=== PATIENT | female | born 1990 ===

== ENCOUNTER → 2020-10-13 08:29 | Outpatient (BNVA) | payer OTHER, SELFPAY | PROVIDERS: PCP Internal Medicine Geriatric Medicine; Visit Provider Psychiatry & Neurology Neurology | DX: F51.04 Psychophysiologic insomnia (principal) | CPT/HCPCS: 99202 ==

== ENCOUNTER → 2020-12-08 09:15 | Outpatient (BNVA) | payer OTHER, SELFPAY | PROVIDERS: PCP Internal Medicine Geriatric Medicine; Visit Provider Psychiatry & Neurology Neurology | CPT/HCPCS: Q3014 ==

== ENCOUNTER → 2021-02-23 09:37 | Outpatient (BNVA) | payer OTHER, SELFPAY | PROVIDERS: PCP Internal Medicine Geriatric Medicine; Visit Provider Psychiatry & Neurology Neurology | DX: Z13.89 Encounter for screening for other disorder (principal) | CPT/HCPCS: Q3014 ==

== ENCOUNTER 2022-11-14 12:48 | Emergency (ER) | payer OTHER, SELFPAY ==
[2022-11-14 14:12] VITALS: BP 122/62; PULSE 70; RESP 18; TEMP 36.2; O2SAT 98; BMI 33.0
--- NOTE | 2022-11-14 14:12 | ED.DENTAL ---
HPI - Dental/Oral General Chief complaint: Dental/Oral <DAVEY Morales - Last Filed: 11/14/22 14:23> Stated complaint: dental pain <DAVEY Morales - Last Filed: 11/14/22 14:23> Time Seen by Provider: 11/14/22 16:12 <DAVEY Morales - Last Filed: 11/14/22 14:23> Source: patient <Amy Payton NP - Last Filed: 11/14/22 17:02> Mode of arrival: ambulatory <Amy Payton NP - Last Filed: 11/14/22 17:02> Limitations: no limitations <Amy Payton NP - Last Filed: 11/14/22 17:02> History of Present Illness HPI Narrative: 32 yo female with history of seizures here with complaints of bilateral upper dental pain. Has appt on Monday to have dental work done. No fevers, chills, diff breathing or diff swallowing. <Amy Payton NP - Last Filed: 11/14/22 17:02> Related Data Home medications: Previous Rx's Medication Instructions Recorded trazodone 50 mg tablet 50 mg PO BEDTIME #30 tabs 10/13/20 clindamycin HCl 150 mg capsule 150 mg PO Q8H 7 days #21 caps 11/14/22 ketorolac 10 mg tablet 10 mg PO Q8H PRN pain #14 tabs 11/14/22 <DAVEY Morales - Last Filed: 11/14/22 14:23> Allergies/adverse reactions: Allergies Allergy/AdvReac Type Severity Reaction Status Date / Time No Known Drug Allergies Allergy Unknown NONE Verified 11/14/22 14:16 [NO KNOWN DRUG ALLERGIES] <DAVEY Morales - Last Filed: 11/14/22 14:23> Review of Systems Review of Systems: Yes all other systems are reviewed and are negative <Amy Payton NP - Last Filed: 11/14/22 17:02> Constitutional: Constitutional: Reports no additional constitutional complaints, Denies body ache(s), Denies chills, Denies fever(s), Denies headache(s) and Denies weakness <Amy Payton TIRE MOLD TESTER - Last Filed: 11/14/22 17:02> Eyes: Eyes: Reports no additional eye complaints and Denies change in vision <Amy Payton TIRE MOLD TESTER - Last Filed: 11/14/22 17:02> ENT: Reports system reviewed and no additional complaints, except as documented, Reports dental pain, Denies dizziness, Denies headache(s), Denies nasal congestion, Denies nasal discharge and Denies neck pain <Amy Payton TIRE MOLD TESTER - Last Filed: 11/14/22 17:02> Cardiovascular: Cardiovascular: Reports no additional cardiovascular complaints, Denies chest pain, Denies leg edema and Denies dyspnea <Amy Payton TIRE MOLD TESTER - Last Filed: 11/14/22 17:02> Respiratory: Respiratory: Reports no additional respiratory complaints, Denies cough and Denies dyspnea <Amy Payton TIRE MOLD TESTER - Last Filed: 11/14/22 17:02> Gastrointestinal: Gastrointestinal: Reports no additional gastrointestinal complaints, Denies abdominal pain, Denies diarrhea, Denies nausea and Denies vomiting <Amy Payton TIRE MOLD TESTER - Last Filed: 11/14/22 17:02> Genitourinary: Genitourinary: Reports no additional female genitourinary complaints and Denies urinary incontinence <Amy Payton TIRE MOLD TESTER - Last Filed: 11/14/22 17:02> Musculoskeletal: Musculoskeletal: Reports no additional musculoskeletal complaints, Denies back pain, Denies arthralgias, Denies joint swelling, Denies neck pain, Denies numbness and Denies tingling <Amy Payton TIRE MOLD TESTER - Last Filed: 11/14/22 17:02> Integumentary/Breasts: Skin/Breast: Reports system reviewed and no additional complaints, except as docu and Denies rash <Amy Payton TIRE MOLD TESTER - Last Filed: 11/14/22 17:02> Neurologic: Reports system reviewed and no additional complaints, except as documented, Denies Abnormal speech present, Denies dizziness, Denies headache(s), Denies numbness, Denies tingling and Denies weakness <Amy Payton TIRE MOLD TESTER - Last Filed: 11/14/22 17:02> PMFSH Past Medical History Attestation statement: The following information was validated with the patient. <Amy Payton NP - Last Filed: 11/14/22 17:02> Source: old records reviewed and nursing notes reviewed <Amy Payton NP - Last Filed: 11/14/22 17:02> Social History Social History: Social History Alcohol intake: never Cigarettes Per Day: 3 Years Smoked: 5+ Smoked in Last 30 Days: No Use of substances other than those prescribed or required for medical reasons: No Substance Use Type: Marijuana Advance Directives: No Advance Directives Information Provided: No Patient : No <DAVEY Morales - Last Filed: 11/14/22 14:23> Physical Exam Vital Signs: Vital Signs: Last Vital Signs Temp 98.2 F 11/14/22 16:14 Pulse 62 11/14/22 16:14 Resp 11/14/22 16:14 BP 134/63 11/14/22 16:14 Pulse Ox 100 11/14/22 16:14 O2 Del Method Room Air 11/14/22 16:14 BMI result Body Mass Index 33.0 <DAVEY Morales - Last Filed: 11/14/22 14:23> Vital Signs: Last Vital Signs Temp 98.2 F 11/14/22 16:14 Pulse 62 11/14/22 16:14 Resp 11/14/22 16:14 BP 134/63 11/14/22 16:14 Pulse Ox 100 11/14/22 16:14 O2 Del Method Room Air 11/14/22 16:14 BMI result Body Mass Index 33.0 <Amy Payton NP - Last Filed: 11/14/22 17:02> Const: General: cooperative, healthy appearing, comfortable and no acute distress <Amy Payton NP - Last Filed: 11/14/22 17:02> Orientation/consciousness: patient oriented x3 <Amy Payton NP - Last Filed: 11/14/22 17:02> Limitations: no limitations <Amy Payton NP - Last Filed: 11/14/22 17:02> HEENT: Other: no trismus <Amy Payton, TIRE MOLD TESTER - Last Filed: 11/14/22 17:02> Head: Yes normal to inspection <Amy Payton, TIRE MOLD TESTER - Last Filed: 11/14/22 17:02> Ears: hearing grossly normal bilaterally <Amy Payton, TIRE MOLD TESTER - Last Filed: 11/14/22 17:02> General nose exam: Normal external nose present <Amy Payton, TIRE MOLD TESTER - Last Filed: 11/14/22 17:02> Face and sinus: Yes normal facial exam <Amy Payton, TIRE MOLD TESTER - Last Filed: 11/14/22 17:02> Mouth: Normal oral and palatal mucosa present <Amy Payton, TIRE MOLD TESTER - Last Filed: 11/14/22 17:02> Teeth image: 1. extensive caries, exposed dentin 2. extensive caries, exposed dentin <Meggan Montez PA - Last Filed: 11/14/22 14:23> Teeth image: 1. extensive caries, exposed dentin 2. extensive caries, exposed dentin <Amy Payton, TIRE MOLD TESTER - Last Filed: 11/14/22 17:02> Throat: Yes posterior oropharynx normal <Amy Payton, TIRE MOLD TESTER - Last Filed: 11/14/22 17:02> Eyes: General: appearance normal, both eyes and all related structures <Amy Payton, TIRE MOLD TESTER - Last Filed: 11/14/22 17:02> Pupils: Equal, round and reactive pupils present <Amy Payton TIRE MOLD TESTER - Last Filed: 11/14/22 17:02> Neck: Neck: Yes normal visual inspection <Amy Payton, TIRE MOLD TESTER - Last Filed: 11/14/22 17:02> Chest: Chest palpation & inspection: normal inspection of the chest <Amy Payton TIRE MOLD TESTER - Last Filed: 11/14/22 17:02> Resp: Effort & Inspection: normal respiratory effort <Amy Payton, TIRE MOLD TESTER - Last Filed: 11/14/22 17:02> Auscultation: clear to auscultation bilaterally <Amy Payton, TIRE MOLD TESTER - Last Filed: 11/14/22 17:02> Cardio: Rate: regular rate <Amy Payton, TIRE MOLD TESTER - Last Filed: 11/14/22 17:02> Rhythm: regular rhythm <Amy Payton, TIRE MOLD TESTER - Last Filed: 11/14/22 17:02> Peripheral pulses: Peripheral pulses 2+ throughout <Amy Payton, TIRE MOLD TESTER - Last Filed: 11/14/22 17:02> GI: Inspection: Yes normal to inspection <Amy Payton, TIRE MOLD TESTER - Last Filed: 11/14/22 17:02> Palpation (GI): Soft to palpation and nontender <Amy Fito, TIRE MOLD TESTER - Last Filed: 11/14/22 17:02> Auscultation: normal bowel sounds <Amy Payton, TIRE MOLD TESTER - Last Filed: 11/14/22 17:02> Back/Spine/Pelvis: Thoracic/Lumbar Spine: thoracic and lumbar spine normal to inspection <Amy Payton TIRE MOLD TESTER - Last Filed: 11/14/22 17:02> Skin: General skin exam: no rashes or lesions noted <Amy Payton, TIRE MOLD TESTER - Last Filed: 11/14/22 17:02> Neuro: General: patient oriented x3, no focal motor deficits and normal sensation to monofilament <Amy Payton, TIRE MOLD TESTER - Last Filed: 11/14/22 17:02> Cranial nerves: Yes Equal, round and reactive pupils present <Amy Payton, TIRE MOLD TESTER - Last Filed: 11/14/22 17:02> Cognition (Neuro): normal cognition <Amy Payton, TIRE MOLD TESTER - Last Filed: 11/14/22 17:02> Speech: No Abnormal speech present <Amy Fito, TIRE MOLD TESTER - Last Filed: 11/14/22 17:02> Gait exam (Neuro): Normal gait present <Amy Payton, TIRE MOLD TESTER - Last Filed: 11/14/22 17:02> Motor exam (neuro): 5/5 motor strength present throughout <Amy Payton, TIRE MOLD TESTER - Last Filed: 11/14/22 17:02> Extrem: General: Yes normal to inspection <Amy Pascucci, TIRE MOLD TESTER - Last Filed: 11/14/22 17:02> Course Course Course Narrative: RME: 32yo F w/no sig PMHx c/o broken teeth x 2 weeks with increasing pain. Has been taking Tylenol/Motrin w/o relief. Also reports sore throat and ear pain. Scheduled for dentist appt on 11/16. Upper molars with crack/filling, no visible pulp. No gingival erythema/fluctuance or induration. Posterior oropharynx with scant erythema, no exudates Discussed with patient opiates are not indicated for this instance, requesting rapid strep Full HPI, ROS and PE to be performed by primary ED provider. <DAVEY Morales - Last Filed: 11/14/22 14:23> Medications Administered Discontinued Medications Generic Name Dose Route Start Last Admin Trade Name Freq PRN Reason Stop Dose Admin Ketorolac Tromethamine 30 mg 11/14/22 16:15 11/14/22 16:40 Ketorolac Tromethamine 30 Mg/Ml Vial IM 11/14/22 16:16 30 mg ONCE ONE Administration <DAVEY Morales - Last Filed: 11/14/22 14:23> Medications Administered Discontinued Medications Generic Name Dose Route Start Last Admin Trade Name Freq PRN Reason Stop Dose Admin Ketorolac Tromethamine 30 mg 11/14/22 16:15 11/14/22 16:40 Ketorolac Tromethamine 30 Mg/Ml Vial IM 11/14/22 16:16 30 mg ONCE ONE Administration <Amy Payton NP - Last Filed: 11/14/22 17:02> Medical Decision Making Medical Decision Making MDM Narrative: 32 yo female here with bilateral upper dental pain with extensive caries. No trismus. Patient is tolerating secretions with no difficulty. No evidence of Dio's angina, dental abscess. Patient be started on antibiotic, given NSAID for home. Plan for follow-up with dentist <Amy Payton NP - Last Filed: 11/14/22 17:02> Differential Diagnosis Differential Diagnoses: The differential diagnosis associated with the presentation includes <CARLENE Porter Last Filed: 11/14/22 17:02> see above <Amy Payton NP - Last Filed: 11/14/22 17:02> Prescription Management I considered prescription management with: Antibiotic <Amy Patyon NP - Last Filed: 11/14/22 17:02> Discharge Plan Discharge Clinical Impression: Toothache <DAVEY Morales - Last Filed: 11/14/22 14:23> Patient Disposition: Home, Self-Care <DAVEY Morales - Last Filed: 11/14/22 14:23> Instructions: Toothache (ED) <DAVEY Morales - Last Filed: 11/14/22 14:23> Additional Instructions: keep appt with dentist on monday <DAVEY Morales - Last Filed: 11/14/22 14:23> Prescriptions: New clindamycin HCl 150 mg capsule 150 mg PO Q8H 7 Days Qty: 21 0RF ketorolac 10 mg tablet 10 mg PO Q8H PRN (Reason: pain) Qty: 14 0RF No Action trazodone 50 mg tablet 50 mg PO BEDTIME Qty: 30 2RF <DAVEY Morales - Last Filed: 11/14/22 14:23> Referrals: Physician,Unknown J [Primary Care Provider] - <DAVEY Morales - Last Filed: 11/14/22 14:23> Interventions: ED Discharge Assessment Last Done: 11/14/22 16:46 <DAVEY Morales - Last Filed: 11/14/22 14:23> Discharge Date/Time: 11/14/22 16:47 <DAVEY Morales - Last Filed: 11/14/22 14:23>
[2022-11-14 16:14] VITALS: BP 134/63; PULSE 62; RESP 19; TEMP 36.8; O2SAT 100
[2022-11-14] MEDS: Ketorolac Tromethamine 30 MG/ML VIAL IM (16:40)
== END 2022-11-14 16:47 | disposition home or self-care (01) ==
PROVIDERS: Emergency Provider Emergency Medicine Emergency Medical Services
DX: K08.89 Other specified disorders of teeth and supporting structures (principal)
CPT/HCPCS: 96372; 99284; J1885

== ENCOUNTER 2024-03-13 08:04 | Emergency (ER) | payer OTHER, SELFPAY ==
[2024-03-13 08:18] VITALS: BP 108/59; PULSE 66; RESP 16; TEMP 36.8; O2SAT 98; BMI 35.9
[2024-03-13 08:31] LABS: MANUAL DIFF FLAG NO
[2024-03-13 08:33] LABS: Basophils Percent Auto 0.3 % (0-2); Eosinophils Absolute Auto 0.1 X10*3/uL (0.0-0.4); Hematocrit 37.8 % (37.0-47.0); Hemoglobin 12.8 g/dl (12.0-16.0); Imm Gran Abs Auto 0.01 X10*3/uL (0.00-0.03); Imm Gran Pct Auto 0.2 % (0.0-0.4); Lymphocytes Absolute Auto 1.6 X10*3/uL (1.2-4.9); Lymphocytes Percent Auto 23.9 % (20-40); Mean Corpuscular HGB Conc 33.9 g/dl (31.0-35.0); Mean Corpuscular Hemoglobin 32.1 pg (27.0-33.0); Mean Corpuscular Volume 94.7 fL (80.0-98.0); Mean Platelet Volume 8.8 fL (9.4-12.3); Monocytes Absolute Auto 0.6 X10*3/uL (0.1-1.2); Neutrophils Absolute Auto 4.2 x10*3/uL (2.0-8.3); Neutrophils Percent Auto 64.6 % (45-73); Platelet Count 311 X10*3/uL (160-400); Red Blood Count 3.99 X10*6/uL (4.20-5.50); Red Cell Distribution Width 12.3 % (11.0-16.0); White Blood Count 6.5 X10*3/uL (4.8-10.8)
[2024-03-13 08:53] LABS: Alanine Aminotransferase 34 U/L (0-31); Alkaline Phosphatase 49 U/L (39-117); Anion Gap 11 (12-20); Aspartate Amino Transferase 18 U/L (5-31); Bilirubin Total 0.5 mg/dL (0.0-1.0); Blood Urea Nitrogen 8 mg/dL (9-16); Calcium 9.6 mg/dL (8.4-10.2); Carbon Dioxide 27 mmol/L (22-29); Chloride 106 mmol/L (96-108); Creatinine Clr Calc Pharmacy 115.4; Estimated Glomerular Filt Rate > 60; Glucose Random 99 mg/dL (60-115); Potassium 4.2 mmol/L (3.3-5.1); Sodium 140 mmol/L (135-145); Total Protein 6.9 g/dL (6.5-8.0)
[2024-03-13 09:32] LABS: Influenza A PCR NEGATIVE (Negative); Influenza B PCR NEGATIVE (Negative); Resp Syncy Virus RNA Qual PCR NEGATIVE (Negative); SARS COV2 PCR INHOUSE NEGATIVE (Negative)
--- NOTE | 2024-03-13 09:58 | ED.GENADULT ---
HPI - General Adult General Chief complaint: General Medical Stated complaint: swollen feet Time Seen by Provider: 03/13/24 09:57 Source: patient Mode of arrival: ambulatory Limitations: no limitations History of Present Illness ED Provider: Faith Melgar PA-C HPI narrative: 33-year-old female with medical history of seizures, depression, and anxiety presents to the emergency department for new onset bilateral foot swelling. Patient reports that the left foot is worse than with constant swelling compared to the right foot. She reports pain with walking and manipulation of the foot. She denies trauma to the area, falls, numbness or tingling of her feet, chest pain, abdominal pain, recent weight gain or weight loss, shortness of breath, fevers or chills. Onset (ago): day(s) (3) Location: left, right and lower extremity Relieving factors: none Exacerbating factors: none Associated symptoms: denies other symptoms Treatments prior to arrival: none Related Data Previous Rx's ?Medication ?Instructions ?Recorded trazodone 50 mg tablet 50 mg PO BEDTIME #30 tabs 10/13/20 clindamycin HCl 150 mg capsule 150 mg PO Q8H 7 days #21 caps 11/14/22 ketorolac 10 mg tablet 10 mg PO Q8H PRN pain #14 tabs 11/14/22 Allergies Allergy/AdvReac Type Severity Reaction Status Date / Time No Known Drug Allergies Allergy Unknown NONE Verified 03/13/24 08:20 [NO KNOWN DRUG ALLERGIES] Review of Systems Constitutional: Constitutional: Reports no additional constitutional complaints, Denies chills, Denies fever(s) and Denies night sweats Eyes: Eyes: Reports no additional eye complaints, Denies blurry vision, Denies change in vision, Denies diplopia, Denies eye discharge, Denies loss of vision and Denies eye pain ENT: Denies dizziness Cardiovascular: Cardiovascular: Reports no additional cardiovascular complaints, Denies chest pain, Denies lightheadedness, Denies Loss of Consciousness and Denies dyspnea Respiratory: Respiratory: Reports no additional respiratory complaints and Denies dyspnea Gastrointestinal: Gastrointestinal: Reports no additional gastrointestinal complaints, Denies abdominal pain, Denies melena, Denies hematochezia, Denies change in bowel habits and Denies change in stool character Genitourinary: Genitourinary: Denies hematuria, Denies urinary frequency, Denies dysuria, Denies urinary incontinence, Denies urinary hesitancy and Denies urinary urgency Musculoskeletal: Musculoskeletal: Reports no additional musculoskeletal complaints, Denies numbness and Denies tingling Comments: bilateral foot swelling Neurologic: Denies dizziness, Denies loss of vision, Denies numbness and Denies tingling Psychiatric: Psychiatric: Reports no additional psychiatric complaints Endocrine: Endocrine: Reports no additional endocrine complaints Hematologic/Lymphatic: Hematologic/Lymphatic: Reports no additional hematologic/lymphatic complaints Allergic/Immunologic: Allergic/Immunologic: Reports no additional allergic/immunologic complaints [facility] Past Medical History Attestation statement: The following information was validated with the patient. Source: old records reviewed and nursing notes reviewed Social History Social History Alcohol intake: never Cigarettes Per Day: 3 Years Smoked: 5+ Substance Use Type: Marijuana Advance Directives: No Advance Directives Information Provided: No Do you have a plan to hurt others: No Plan Physical Exam ED Vital Signs: Vital Signs - 24 hr 03/13/24 08:18 03/13/24 11:07 Temperature 98.2 F 98.2 F Pulse Rate 66 66 Respiratory Rate 16 16 Blood Pressure 108/59 L 108/59 L Pulse Oximetry 98 98 Oxygen Delivery Method Room Air Room Air BMI result Body Mass Index 35.9 Const General: cooperative, no acute distress, alert and awake Nutritional Appearance: well nourished Orientation/consciousness: patient oriented x3 Limitations: no limitations [facility] Head: Yes normal to inspection and Yes atraumatic Ears: hearing grossly normal bilaterally and external ears normal General nose exam: Normal external nose present, no nasal discharge noted and no epistaxis Face and sinus: Yes normal facial exam, No abrasion and No laceration Mouth: Normal oral and palatal mucosa present, no drooling and no muffled voice Eyes General: appearance normal, both eyes and all related structures Periorbital: periorbital findings normal Eyelids: Yes eyelids normal Conjunctivae: conjunctivae normal Pupils: Equal, round and reactive pupils present EOM: EOMs intact bilaterally Neck Neck: Yes normal visual inspection, Yes full ROM and Yes no lymphadenopathy Chest Chest palpation & inspection: normal inspection of the chest Resp Effort & Inspection: normal respiratory effort and able to speak in complete sentences GI Inspection: Yes normal to inspection Neuro General: patient oriented x3 and moves all extremities Cranial nerves: Yes Equal, round and reactive pupils present Cognition (Neuro): normal cognition Extrem Other: minimal bilateral feet swelling General: Yes full ROM and Yes capillary refill normal Psych Appearance: grossly normal Mental Status: mental status grossly normal Affect: normal affect Attitude: cooperative Thought process: Normal thought process present Thought content: Normal thought content present Insight: Good insight present (Psych) Medical Decision Making Medical Decision Making [facility] Narrative: Patient is a 33 year old assigned female at with a history of anxiety and seizures presenting to the emergency department today with bilateral foot swelling. Patient's physical exam showed minimal foot swelling bilaterally. Patient's blood work was unremarkable. I explained my physical exam findings as well as all test results to the patient. I answered all questions asked by the patient. Patient's clinical presentation is most consistent with dependent edema. I stressed the importance of the patient taking her medication as directed (either prescribed or as the over the counter packaging recommends). I stressed the importance of the patient following up with her primary care provider. I stressed the importance of the patient returning to the emergency department immediately if her symptoms were to worsen or if she were to develop any dizziness, shortness of breath, difficulty breathing, chest pain, blurry vision, loss of vision, nausea, vomiting, abdominal pain, fever, chills, back pain, or any other complaints. Patient verbalized agreement and understanding with this treatment plan and discharge. Differential Diagnosis Differential Diagnoses: The differential diagnosis associated with the presentation includes Dependent edema Foot swelling Admission/Observation Consideration of admission/observation: Escalation of care including admission/observation considered Patient would have been admitted to the hospital had her work up had any findings where hospital admission was appropriate and her clinical presentation warranted hospital admission. Lab Data [facility] Lab Attestation statement: I reviewed the patient's lab results. My interpretation of these results are in the [facility] Rationale portion of this note. 03/13/24 08:26 03/13/24 08:26 Labs: Lab Results 03/13/24 Range/Units 08:26 WBC 6.5 (4.8-10.8) X10*3/uL RBC 3.99 L (4.20-5.50) X10*6/uL Hgb 12.8 (12.0-16.0) g/dl Hct 37.8 (37.0-47.0) % MCV 94.7 (80.0-98.0) fL MCH 32.1 (27.0-33.0) pg MCHC 33.9 (31.0-35.0) g/dl RDW 12.3 (11.0-16.0) % Plt Count 311 (160-400) X10*3/uL MPV 8.8 L (9.4-12.3) fL Immature Gran % (Auto) 0.2 (0.0-0.4) % Neut % (Auto) 64.6 (45-73) % Lymph % (Auto) 23.9 (20-40) % [place] % (Auto) 9.0 (2-11) % Eos % (Auto) 2.0 (0-4) % Baso % (Auto) 0.3 (0-2) % Lymph # (Auto) 1.6 (1.2-4.9) X10*3/uL [place] # (Auto) 0.6 (0.1-1.2) X10*3/uL Eos # (Auto) 0.1 (0.0-0.4) X10*3/uL Baso # (Auto) 0.0 (0.0-0.2) X10*3/uL Abs Immat Gran (auto) 0.01 (0.00-0.03) X10*3/uL Absolute Neuts (auto) 4.2 (2.0-8.3) x10*3/uL Absolute Nucleated RBC 0.000 (0.0-0.012) X10*3/uL Nucleated RBC % (auto) 0.0 (0.0-0.2) /100WBC Sodium 140 (135-145) mmol/L Potassium 4.2 (3.3-5.1) mmol/L Chloride 106 (96-108) mmol/L Carbon Dioxide 27 (22-29) mmol/L Anion Gap 11 L (12-20) BUN 8 L (9-16) mg/dL Creatinine 0.83 (0.5-1.4) mg/dL Estim Creat Clear Calc 115.4 Estimated GFR > 60 Random Glucose 99 (60-115) mg/dL Calcium 9.6 (8.4-10.2) mg/dL Total Bilirubin 0.5 (0.0-1.0) mg/dL AST 18 (5-31) U/L ALT 34 H (0-31) U/L Alkaline Phosphatase 49 (39-117) U/L Total Protein 6.9 (6.5-8.0) g/dL Albumin 4.0 (3.5-5.0) g/dL Beta HCG, Quant < 2 mIU/mL Influenza Type A (PCR) NEGATIVE (Negative) Influenza Type B (PCR) NEGATIVE (Negative) RSV RNA Qual (PCR) NEGATIVE (Negative) SARS-CoV-2 RNA (RT-PCR) NEGATIVE (Negative) Tests considered The following testing was considered but not selected: I considered obtaining a bilateral lower leg US however, the patient has no risk factors for DVT and her current clinical presentation is not consistent with DVTs. I discussed this with the patient who verbalized understanding and agreement. Discharge Plan Discharge Clinical Impression: Dependent edema Patient Disposition: Home, Self-Care Instructions: Leg Edema (ED), Edema (ED) Additional Instructions: Elevate your lower legs when you are sitting, wear compression stockings. Follow up with your primary care provider. Return to the emergency department immediately if your symptoms worsen or if you develop any dizziness, shortness of breath, difficulty breathing, chest pain, blurry vision, loss of vision, nausea, vomiting, abdominal pain, fever, chills, back pain, or any other complaints. Prescriptions: No Action clindamycin HCl 150 mg capsule 150 mg PO Q8H 7 Days Qty: 21 0RF ketorolac 10 mg tablet 10 mg PO Q8H PRN (Reason: pain) Qty: 14 0RF trazodone 50 mg tablet 50 mg PO BEDTIME Qty: 30 2RF Referrals: [facility] [facility] [Provider Group] (Call to establish and follow up with a primary care provider. If you already have a primary care provider, please follow up with them.) [facility] [place] [facility] [Provider Group] (Call to establish and follow up with a primary care provider. If you already have a primary care provider, please follow up with them.) [facility] [place] [facility] [Provider Group] (Call to establish and follow up with a primary care provider. If you already have a primary care provider, please follow up with them.) Interventions: ED Discharge Assessment Last Done: 03/13/24 11:07 Discharge Date/Time: 03/13/24 11:08 Print Language: Thai
[2024-03-13 10:51] LABS: HCG Quantitative < 2 mIU/mL
[2024-03-13 11:07] VITALS: BP 108/59; PULSE 66; RESP 16; TEMP 36.8; O2SAT 98
== END 2024-03-13 11:08 | disposition home or self-care (01) ==
PROVIDERS: Physician Assistant Medical; Emergency Provider Emergency Medicine
DX: M79.89 Other specified soft tissue disorders (principal); M79.672 Pain in left foot; M79.671 Pain in right foot; R56.9 Unspecified convulsions; R60.9 Edema, unspecified; Z79.899 Other long term (current) drug therapy; Z03.818 Encounter for observation for suspected exposure to other biological agents ruled out
CPT/HCPCS: 0241U; 80053; 84702; 85025; 99282; 99283

== ENCOUNTER 2024-09-24 11:20 | Outpatient (REF) | payer OTHER, SELFPAY ==
[2024-09-24 13:08] LABS: Anion Gap 12 (12-20); Blood Urea Nitrogen 7 mg/dL (9-16); Calcium 9.3 mg/dL (8.4-10.2); Carbon Dioxide 25 mmol/L (22-29); Chloride 108 mmol/L (96-108); Cholesterol 163 mg/dL (<200); Estimated Glomerular Filt Rate > 60; Glucose Random 129 mg/dL (60-115); HDL Cholesterol 46 mg/dL (>40); LDL Cholesterol Calculated 105 mg/dL (<100); Potassium 3.8 mmol/L (3.3-5.1); Sodium 141 mmol/L (135-145); Triglycerides 62 mg/dL (<150)
[2024-09-24 13:26] LABS: Vitamin D 25-OH Total 15.6 ng/mL (>30)
--- OUTSIDE RECORDS SUMMARY | 2024-09-24 14:16 | XMS_ITS | Encounter Summary ---
Demographics Address [address] [place] [address] Work Phone Mobile Phone Email Address Preferred Language en Marital Status Single Jewish Affiliation Unknown Race Other Race Ethnic Group or Author Organization [employer] Address [address] [place] [address] Care Team Providers Care Mechanism Assembler Name Role Phone Ramu Kavya CONCE[employer]ION Primary Care Provider [phone] Encounter Details Date Type Department Care Team (Latest Contact Info) Description 09/23/2024 Travel Social History Tobacco Use Types Packs/Day Years Used Date Smoking Tobacco: Former Cigarettes 0.3 15.2 S tarted: 2009 Smokeless Tobacco: Never Alcohol Use Standard Drinks/Week Comments Not Currently 0 (1 standard drink = 0.6 oz pur e alcohol) Depression Answer Date Recorded Patient Health Questionnaire-9 Score 0 01/11/2023 Housing Stability Answer Date Recorded What is your housing situation today? I have brent yuen 09/11/[address] you li ve. Do you have problems with any of the following? None of the above 09/11/2024 Food Insecurity Answer Date Recorded Within the past 12 months, y ou worried that your food would run out before you got money to buy more: Never True 09/11/2024 Within the past 12 months,th e food you bought just didn't last and you didn't have enough money to get more: Never True Transportation Answer Date Recorded In the past 12 months, has l ack of transportation kept you from medical appts, meetings, work or from getting things needed for daily living? No 09/11/2024 Utilities Answer Date Recorded In the past 12 months, has t he electric, gas, oil or water company threatened to shut off services in your home? No 09/11/2024 Depression Answer Date Recorded Patient Health Questionnaire-2 Score 0 01/11/2023 Internet Access Answer Date Recorded Internet Access Q1 Yes 09/11/2024 Internet Access Q2 Not on file 09/11/2024 Comments No Sex and Gender Information Value Date Recorded Sex Assigned at Female 05/23/2022 10:16 AM EDT Legal Sex Female 10:16 AM EDT Gender Identity Female 05/23/2022 10:16 AM EDT Sexual Orientation Straight 12/05/2022 9: 28 AM EDT documented as of this encounter Plan of Treatment Upcoming Encounters Date Type Department Care Team (Late st Contact Info) Description 10/18/2024 11:00 AM EDT Office Visit [facility] [address] [place] [address] Kavya Guallpa NP [address] [place] [address] documented as of this encounter Visit Diagnoses Not on filedocumented in this encounter Additional Health Concerns Assessment Noted Time PHQ-9 Depression Total Score: 0 01/12/20 9:33 AM EDT documented as of this encounter Care Teams Mechanism Assembler Relationship Specialty Start Date End Date Kavya Guallpa NP [address] [place] [address] PCP - General Family Medicine 07/04/23 documented as of this encounter
--- OUTSIDE RECORDS SUMMARY | 2024-09-24 14:16 | XMS_ITS | Encounter Summary ---
Demographics Address [address] [place] [address] Work Phone Mobile Phone Email Address Preferred Language en Marital Status Single Restoration Affiliation Unknown Race Other Race Ethnic Group or Author Organization [employer] Address [address] [place] [address] Care Team Providers Care Spinning Bath Patroller Name Role Phone Kavya Guallpa NP Primary Care Provider [phone] Reason for Visit * Reason Comments Pre-visit Planning SDOH negative, Tobac co screening negative. Encounter Details Date Type Department Care Team ([facility] st Contact Info) Description 09/11/2024 Patient Outreach [facility] [address] [place] [address] Kavya Guallpa NP [address] [place] [address] Pre-visit Planning (SDOH negative, Tobacco screening negative. ) Social History Tobacco Use Types Packs/Day Years Used Date Smoking Tobacco: Every Day Cigarettes Smokeless Tobacco: Never Alcohol Use Standard Drinks/Week Comments Never 0 (1 standard drink = 0.6 oz [...] AM EDT documented as of this encounter Progress Notes * Bety Ware - 09/11/2024 11:51 AM EST CC Bety Aguayo placed successful outbound call to patient for pre-visit planning. Patient name and confirmed. Patient confirms appt date and time, and has transportation arrangements. Biggest concern for appointment at this time is no concerns. Appropriate screenings completed in anticipation ofappointment. documented in this encounter Plan of Treatment Upcoming Encounters Date Type Department Care Team (Late st Contact Info) Description 10/18/2024 11:00 AM EDT Office Visit [facility] [address] [place] [address] Kavya Guallpa NP [address] [place] [address] documented as of this encounter Visit Diagnoses Not on filedocumented in this encounter Additional Health Concerns Assessment Noted Time PHQ-9 Depression Total Score: 0 01/12/20 23 9:33 AM EDT documented as of this encounter Care Teams Spinning Bath Patroller Relationship Specialty Start Date End Date Kavya Guallpa NP [address] [place] [address] PCP - General Family Medicine 07/04/23 documented as of this encounter
--- OUTSIDE RECORDS SUMMARY | 2024-09-24 14:16 | XMS_ITS | Encounter Summary ---
Demographics Address [address] [place] [address] Work Phone Mobile Phone Email Address Preferred Language en Marital Status Single Methodist Affiliation Unknown Race Other Race Ethnic Group or Author Organization [employer] Address [address] [place] [address] Care Team Providers Care Hydro Plant Technician Name Role Phone Kavya Guallpa NP Primary Care Provider [phone] Reason for Referral * Consultation (Routine) - Authorized Specialty Diagnoses / Procedures Referred By Contbassam t Referred To Contact Nutrition Diagnoses Obesity (BMI 30-39.9) Kavya Guallpa NP [address] [place] [address] Phone: tel: fax: Referral ID Status Reason Start Date Expiration Date Visits Requested Visits Authorized [id number] Authorized Specialty Services Required 09/20/2024 09/20/2025 1 1 Reason for Visit * Reason Comments transfer patient Encounter Details Date Type Department Care Team ([facility] st Contact Info) Description 09/20/2024 10:30 AM EST Office Visit [facility] [address] [place] [address] Kavya Guallpa NP [address] [place], [place] [phone] Encounter to establish care (Primary Dx); Seizure disorder (CMS/HCC); Mild intermittent asthma without complication; Vitamin D deficiency; Low serum HDL; Encounter for health-related screening; Obesity (BMI 30-39.9) Social History Tobacco Use Types Packs/Day Years Used Date Smoking Tobacco: Former Cigarettes 0.3 15.2 S tarted: 2010 Smokeless Tobacco: Never Tobacco Cessation:Counseling Given: Not Answered Alcohol Use Standard Drinks/Week Comments Not Currently [...] AM EDT documented as of this encounter Last Filed Vital Signs Vital Sign Reading Time Taken Comments Blood Pressure 129/79 09/20/2024 11:07 AM EST Pulse 88 09/20/2024 11:07 AM EST Temperature 35.7 ??C (96.2 ??F) 09/20/2024 11:[address] Respiratory Rate 22 09/20/2024 11:07 AM EST Oxygen Saturation 98% 09/20/2024 11:07 AM EST Inhaled Oxygen Concentration - - Weight 108 kg (237 lb) 09/20/2024 11:07 AM EST Height 167.6 cm (5' 6 ) 09/20/2024 11:07 AM EST Body Mass Index 38.25 09/20/2024 11:07 AM EST documented in this encounter Miscellaneous Notes * Assessment & Plan Note - Kavya Guallpa NP - 09/20/2024 11:06 AM ESTAssociated Problem(s): Seizure disorder (CMS/HCC) -patient discontinued keppra documented in this encounter Plan of Treatment Upcoming Encounters Date Type Department Care Team (Late st Contact Info) Description 10/18/2024 11:00 AM EDT Office Visit [facility] [address] [place], [place] [phone] Kavya Guallpa NP [address] [place], [place] [phone] Scheduled Referrals Name Type Priority Associated Diagnoses Orde r Schedule Referral to Nutrition Services Outpatient Referral Routine Obesity (BMI 30-39.9) Expected: 09/20/2024 (Approximate), Expires: 09/20/2025 documented as of this encounter Procedures Procedure Name Priority Date/Time Associated Diagnosis Comments VITAMIN D,25-OH,TOTAL,IA Routine 09/24/2024 11:42 AM EST Vitamin D deficiency TSH W/REFLEX TO FT4 Routine 09/24/2024 1 1:42 AM EST Obesity (BMI 30-39.9) LIPID PANEL, STANDARD Routine 09/24/2024 11:42 AM EST Obesity (BMI 30-39.9) BASIC METABOLIC PANEL Routine 09/24/2024 11:42 AM EST Obesity (BMI 30-39.9) documented in this encounter Results * (ABNORMAL) Basic Metabolic Panel (09/24/2024 11:42 AM EST) Sodium 141 135 - 145 mmol/L [facility] Potassium 3.8 3.3 - 5.1 mmol/L [facility] Chloride 108 96 - 108 mmol/L [facility] Carbon Dioxide 25 22 - 29 mmol/L [facility] Anion Gap 12 12 - 20 [facility] Urea Nitrogen (BUN) 7(L) 9 - 16 mg/dL [facility] Creatinine, Serum 0.77 0.5 - 1.4 mg/dL [facility] Estimated Glomerular Filt Rate >60 [facility] Comment:Chronic Kidney Disea se: Estimated GFR < 60 mL/min/1.02h9Akruug Kidney Disease: Estimated GFR < 15 mL/min/1.73m2 Glucose 129(H) 60 - 115 mg/dL [facility] Calcium 9.3 8.4 - 10.2 mg/dL [facility] Blood Venous blood specimen / Unknown 09/24/2024 11:42 AM EST 09/24/2024 11:42 AM EST [facility] LAB BLOOD ORDERABLES Final Resu lt Performing Organization Address [facility]/ZIP Co de Phone Number [facility] [address] [place] [address] [phone] * TSH W/Reflex to FT4 (09/24/2024 11:42 AM EST) TSH reflex Free T4 1.10 0.32 - 4.0 uIU/mL [facility] Blood Venous blood specimen / Unknown 09/24/2024 11:42 AM EST 09/24/2024 11:42 AM EST [facility] [employer]STER [employer]ICE [employer] LAB BLOOD ORDERABLES Final Resu lt Performing Organization Address [facility]/ZIP Co de Phone Number [facility] [address] [place] [address] [phone] * (ABNORMAL) Vitamin D, 25-Hydroxy, Total, Immunoassay (09/24/2024 11:42 AM EST) Vitamin D 25-OH Total 15.6(L) >30 ng/mL [facility] Comment:Health Based Referen ce Values*< 20 ng/mL [id number] ng/mL Insufficient> 30 ng/mL Sufficient*Jocelynn YOO. N Engl J Med. 2007;357:266-280Care must be taken in interpreting Vitamin D results fromdifferent laboratories and methodologies. Published datademonstrated that results from patients undergoinghemodialysis may show a negative bias when tested withvarious automated 25-OH vitamin D assays when compared toLC-MS/MS.When testing samples from patients whose predominant form ofVitamin D is Vitamin D2, such as patients receiving VitaminD2 supplementation, results that are subtherapeutic shouldbe confirmed with another method such as LC-MS/MS. Blood Venous blood specimen / Unknown 09/24/2024 11:42 AM EST 09/24/2024 11:42 AM EST Kavya Guallpa NP LAB BLOOD ORDERABLES Final Resu lt [facility] [address] [place] [phone] * (ABNORMAL) Lipid Panel, Standard (09/24/2024 11:42 AM EST) Triglycerides 62 <150 mg/dL [facility] Comment:Desirable Triglyceri de: less than 150 mg/dLBorderline High Triglyceride 150-199 mg/dLHigh Triglyceride: 200-499 mg/dLVery High Triglyceride: greater than or equal to 5OO mg/dL Cholesterol 163 <200 mg/dL [facility] Comment:Desirable Cholestero l: less than 200 mg/dLBorderline High Cholesterol: 200-239 mg/dLHigh Cholesterol: greater than 239 mg/dL LDL Cholesterol Calculated 105(H) <100 mg/dL [facility] Comment:Desirable LDL: less than 100 mg/dLNear Optimal/Above Optimal LDL: 110- 129 mg/dLBorderline High LDL: 130-159 mg/dLHigh LDL: 160-189 mg/dLVery High LDL: greater than or equal to 190 mg/dL HDL Cholesterol 46 >40 mg/dL [facility] Comment:Desirable HDL: great er than 40 mg/dL Note: This HDL assay may give artificially low results in patients with liver disease. Blood Venous blood specimen / Unknown 09/24/2024 11:42 AM EST 09/24/2024 11:42 AM EST Kavya Guallpa NP LAB BLOOD ORDERABLES Final Resu lt [facility] [address] [place] [address] [phone] documented in this encounter Visit Diagnoses Diagnosis Encounter to establish care- Primary Seizure disorder (CMS/HCC) Unspecified epilepsy without mention of intractable epilepsy Mild intermittent asthma without complication Vitamin D deficiency Low serum HDL Encounter for health-related screening Obesity (BMI 30-39.9) documented in this encounter Additional Health Concerns Assessment Noted Time PHQ-9 Depression Total Score: 0 01/12/20 23 9:33 AM EDT documented as of this encounter Care Teams Hydro Plant Technician Relationship Specialty Start Date End Date Kavya Guallpa NP [address] [place] [phone] PCP - General Family Medicine 07/04/23 documented as of this encounter
--- OUTSIDE RECORDS SUMMARY | 2024-09-24 14:16 | XMS_ITS | Encounter Summary ---
Demographics Address [address] [place] [address] Work Phone Mobile Phone Email Address Preferred Language en Marital Status Single Latter-Day Affiliation Unknown Race Other Race Ethnic Group or Author Organization [employer] Address [address] [facility] [address] [place] [address] Care Team Providers Care Metal Stud Framer Name Role Phone Lucas, Cayladaniel FABIAN Primary Care Provider [phone] Kavya Guallpa NP Primary Care Provider [phone] Thor Mooney MD Primary Care Prov ider Kavya Guallpa NP Primary Care Provider [phone] Encounter Details Date Type Department Care Team (Late st Contact Info) Description 08/01/2022 Orders Only [facility] [address] [place] [address] Claudia Gould LPN Social History Tobacco Use Types Packs/Day Years Used Date Smoking Tobacco: Never Assessed Comments Unknown Sex and Gender Information Value Date Recorded Sex Assigned at Female 05/23/2022 10:16 AM EDT Legal Sex Female 10:16 AM EDT Gender Identity Female 05/23/2022 10:16 AM EDT Sexual Orientation Straight 12/05/2022 9: 28 AM EDT documented as of this encounter Plan of Treatment Upcoming Encounters Date Type Department Care Team (Late st Contact Info) Description 10/18/2024 11:00 AM EDT Office Visit [facility] [address] [place] [address] Kavya Guallpa NP [address] [place] [address] documented as of this encounter Visit Diagnoses Not on filedocumented in this encounter Care Teams Metal Stud Framer Relationship Specialty Start Date End Date Cayla Zavala FNP PCP - General Family Medicine 05/17/21 04/26/23 Kavya Guallpa NP [address] [place] [address] PCP - General Family Medicine 04/27/23 06/25/23 Thor Mooney MD [address] [place] [phone] PCP - General Internal Medicine 06/26/23 07/03/23 Kavya Guallpa NP [address] [place] [address] PCP - General Family Medicine 07/04/23 documented as of this encounter
--- OUTSIDE RECORDS SUMMARY | 2024-09-24 14:16 | XMS_ITS | Clinical Summary ---
Demographics Address [address] [place] [address] Work Phone Mobile Phone Email Address Preferred Language en Marital Status Single Pentecostalism Affiliation Unknown Race Other Race Ethnic Group or Author Organization [email or web address] Address [address] [facility] [address] [place] [address] Care Team Providers Care District Or District Office Director Name Role Phone Kavya Guallpa NP Primary Care Provider [phone] Allergies No known active allergies Medications * This document contains information received from the source organization and may not represent a complete record from that organization. cholecalciferol (D3-1000) 25 MCG (1000 UT) capsuleIndicati ons:Vitamin D deficiency Take 1 capsule (25 mcg) by mouth in the morning. 90 capsule 1 01/12/20 23 Active Additional Information Patient not taking.Reported on 09/13/2024 albuterol 108 (90 Base) MCG/ACT inhalerIndicati ons:Mild intermittent asthma without complication Inhale 2 puffs every 4 (four) hours if needed for wheezing or shortness of breath. 18 g 3 09/20/19 25 Active levETIRAcetam (Keppra) 500 MG tabletIndicatio ns:Seizure disorder (CMS/HCC) Take 1 tablet (500 mg) by mouth 2 times daily. 60 tablet 2 09/20/19 25 Active ibuprofen 800 MG tablet Take 1 tablet by mouth every 6 (six) hours. 12/13/19 20 2024 Discontinued(M ed list cleanup (will not trigger notification to Pharmacy)) clindamycin (Cleocin) 150 MG capsule TAKE 1 CAPSULE BY MOUTH EVERY 8 HOURS FOR 7 DAYS 11/15/19 23 2024 Discontinued(M ed list cleanup (will not trigger notification to Pharmacy)) albuterol 108 (90 Base) MCG/ACT inhalerIndicati ons:Mild intermittent asthma without complication Inhale 2 puffs every 4 (four) hours if needed for wheezing or shortness of breath. 18 g 3 01/12/20 23 2024 Discontinued(R eorder (will not trigger notification to Pharmacy)) SUMAtriptan (Imitrex) 25 MG tabletIndicatio ns:Chronic migraine without aura without status migrainosus, not intractable Take 1 tablet (25 mg) by mouth 1 (one) time if needed for migraine for up to 1 dose. May repeat dose once in 2 hours if no relief. Do not exceed 2 doses in 24 hours. 9 tablet 01/12/20 23 2024 Discontinued(M ed list cleanup (will not trigger notification to Pharmacy)) cetirizine (ZyrTEC) 10 MG tabletIndicatio ns:Irritation of both ears Take 1 tablet (10 mg) by mouth in the morning. 30 tablet 2 01/12/20 23 2024 Discontinued(M ed list cleanup (will not trigger notification to Pharmacy)) Diclofenac Sodium (Voltaren) 1 % gelIndications: Encounter for well adult exam without abnormal findings Apply 2 g topically if needed in the morning and at bedtime (muscle pain). 100 g 3 01/12/20 23 2024 Discontinued(M ed list cleanup (will not trigger notification to Pharmacy)) levETIRAcetam (Keppra) 500 MG tabletIndicatio ns:Seizure disorder (CMS/HCC) Take 1 tablet (500 mg) by mouth 2 times daily. 60 tablet 1 01/12/20 23 2024 Discontinued(R eorder (will not trigger notification to Pharmacy)) minocycline 100 MG capsuleIndicati ons:Hidradeniti s suppurativa TAKE 1 CAPSULE BY MOUTH TWICE A DAY 120 capsule 03/10/20 23 2024 Discontinued(M ed list cleanup (will not trigger notification to Pharmacy)) Active Problems Problem Noted Date Diagnosed Date Moderate anxiety 09/23/2024 Assessment & Plan (09/23/2024 11:17 AM EST): During IBH Consult Johnna presenting with excessive worry/anxiety, difficulty controlling worry, anxiety/worry associated to restlessness and/or feeling keyed-up/On edge , easily fatigued , difficulty concentrating and/or mind going blank , and muscle tension , and Fear ; for a period of 6-12 mo, for most or all symptoms in the context of relationship issues. Pt had services in the past for individual therapy. Pt reports sxs are associated with current relationship. clinician engaged patient with active/reflective listening. Reviewed and assessed for risk, current stressors and protective factors. clinician will meet with patient in-person during next medical follow-up appointment on 10/18. Referral will be place for OP individual therapy. Discussed [facility] services for additional support. Provided contact information for additional support. Encounter to establish care 09/20/2024 Callus of foot 01/17/2023 Overview (01/17/2023): Chronic callus Affecting walking and gait Assessment & Plan (01/17/2023 10:49 PM EDT): Callus too deep to pair down today Refer Podiatry for eval Followup PRN Chronic midline low back pain without sciatica 0 01/17/2023 Overview (01/17/2023): Chronic back pain x 7 years No imaging No medications Assessment & Plan (01/17/2023 10:46 PM EDT): Will order Voltaren gel for symptomatic relief Recommend stretches Order xray spine; notify results Refer PT Followup 2 months or sooner PRN Mild intermittent asthma without complication Overview (01/17/2023): Intermittent sx Assessment & Plan (01/17/2023 10:48 PM EDT): Will refill HOLLY, use PRN w/ spacer Followup PRN Chronic migraine without aur a without status migrainosus, not intractable 01/11/2023 Overview (01/17/2023): Chronic migraines, treating w/ Advil OTC daily Triggers seizures potentially. Assessment & Plan (01/17/2023 10:47 PM EDT): Educated pt on medication overuse headaches Rx Sumatriptan 1 tab at ONSET of headache, 2nd tab 2 hours later if sx still present Avoid over use Avoid dairy, greasy foods, caffeine, chocolate. Followup 2 months or sooner PRN Hirsutism 01/06/2023 Insomnia 01/06/2023 Polycystic ovary syndrome 01/06/2023 Hidradenitis suppurativa 12/17/2021 Assessment & Plan (01/06/2023 9:31 AM EDT): ?? Initiate Minocin 100 mg twice-daily ?? Return to clinic in two-months Mixed anxiety and depressive disorder 10/10/2016 Overview (01/17/2023): Care managed by psych Assessment & Plan (01/17/2023 10:52 PM EDT): Continue therapy twice a week Avoid triggers Followup 2 months or sooner PRN Seizure disorder 10/10/2016 Overview (01/17/2023): Previous visit at Neurology in 2018 had negative work up: head CT, EEG, 24 hr EEG Last Neurology appt was 1 year ago. Per pt increased dose of Keppra Assessment & Plan (09/20/2024 11:06 AM EST): -patient discontinued keppra Assessment & Plan (01/17/2023 10:44 PM EDT): Will refill Keppra 500mg BID Check Keppra level again w/ labs today Encouraged pt to call Neuro and scheduled appt Followup 2 months or sooner PRN Vitamin D deficiency 10/10/2016 Overview (01/17/2023): Treating w/ Cholecalciferol 25mcg daily Assessment & Plan (01/17/2023 10:44 PM EDT): Will check Vit D again today Notify results Followup 2 months or sooner PRN Resolved Problems Problem Noted Date Diagnosed Date Resolved Date Insulin resistance 01/06/2023 3 Encounters * This document contains information received from the source organization and may not represent a complete record from that organization. Date Type Department Care Team Description 09/23/2024 Travel 09/20/2024 10:30 AM EST Office Visit [facility] [address] [place] [phone] Kavya Guallpa NP Encounter to establish care (Primary Dx); Seizure disorder (CMS/HCC); Mild intermittent asthma without complication; Vitamin D deficiency; Low serum HDL; Encounter for health-related screening; Obesity (BMI 30-39.9) 09/11/2024 Patient Outreach [facility] [address] [place] [address] Kavya Guallpa NP Pre-visit Planning (SDOH negative, Tobacco screening negative. ) 09/03/[address] [address] [place] chartprep 07/12/[address] [address] Kavya Guallpa NP Telephone Call from Last 3 Months Immunizations Name Administration Dates Next Due DTaP 11/24/2012, 5,12/12/1992,09/29,10/06/1991,08/07/1991 HPV, Quadrivalent 11/06/2009,10/09/2008,04/17/20 08 Hep B, Adolescent or Pediatric 03/31/1998,1997,03/03/1997 Hep B, adult 06/23/2017,03/09/2017,12/16/2016 Hib (HbOC) 12/12/1992, 3,10/06/1991,08/07 IPV 08/15/1994, 3,10/06/1991,08/07 Influenza injectable quadriv alent IIV4 with preservative 05/18/2017 Influenza injectable quadriv alent preservative free 07/19/2019 Influenza, IIV3, injectable 04/08/2010, 0 MMR 11/24/2012, 0,10/14/1993,09/29 Meningococcal MCV4P ACYW-135 04/17/2008 Pneumococcal Polysaccharide PPSV23 05/17/2000 TD (adult), 2 Lf tetanus tox oid, preservative free, adsorbed 04/20/2004 Tdap 11/06/2009 Family History Medical History Relation Name Comments Bone cancer Maternal Grandmother Skin cancer Maternal Grandmother Stomach cancer Paternal Grandmother Relation Name Status Comments Maternal Grandmother Paternal Grandmother Social History Tobacco Use Types Packs/Day Years Used Date Smoking Tobacco: Former Cigarettes 0.3 15.2 S tarted: 2009 Smokeless Tobacco: Never Tobacco Cessation:Counseling Given: Not [...] Orientation Straight 12/05/2022 9: 28 AM EDT Last Filed Vital Signs Vital Sign Reading [...] Mass Index 38.25 09/20/2024 11:07 AM EST Plan of Treatment Upcoming Encounters Date Type Department Care Team (Late st Contact Info) Description 10/18/2024 11:00 AM EDT Office Visit [facility] [address], [place] [phone] Kavya Guallpa NP [address], [place] [phone] Health Maintenance Due Date Last Done Comments Pneumococcal Vaccine: Pediatrics (0 to 5 Years) and At-Risk Patients (6 to 49) Years) (2 of 2 - PCV) 05/17/2001 05/17/2000 Family Planning (PISQ) 2005 DTaP/Tdap/Td Vaccines (7 - Td or Tdap) 11/24/2022 11/24/2012, 11/06/2009, 04/20/2004, Additional history exists Depression Screening 01/12/2024 01/11/2023, 01/12/20 23 COVID-19 Vaccine (3 - season) 2024 04/28/2021, 04/07/2021 Influenza Vaccine (#1) 2024 9, 05/18/2017, 04/08/2010, Additional history exists Pap Smear 12/17/2024 12/17/2021, 12/17/2021 SDOH Screening 09/11/2025 09/11/2024 Alcohol/Substance Use Screening 09/20/2025 09/20/2024 Tobacco Screening 09/20/2025 09/20/2024 Cervical Cancer Screening 12/17/2026 HPV/Cotest 12/17/2026 12/17/2021 Lipid Panel 09/24/2029 09/24/2024, 12/23, 2021 Zoster Vaccines (1 of 2) 2040 RSV Patients and Patients Aged 60 years or older (1 - 1-dose 75+ series) 2065 HIB Vaccines Completed 12/12/1992, 03/1993, 10/06/1991, Additional history exists IPV Vaccines Completed 08/15/1994, 11/22, 10/06/1991, Additional history exists Meningococcal Vaccine Completed 04/17/2008 HPV Vaccines Completed 11/06/2009, 09/21, 04/17/2008 Hepatitis B Vaccines Completed 06/23/2017, 03/09/2017, 12/16/2016, Additional history exists HIV Screening Completed 09/16/2019 Hepatitis C Screening Completed 09/16/2019 Hepatitis A Vaccines Aged Out No long er eligible based on patient's age to complete this topic RSV under 20 months Aged Out No longe r eligible based on patient's age to complete this topic Rotavirus Vaccines Aged Out No longer eligible based on patient's age to complete this topic Procedures Procedure Name Priority Date/Time Associated Diagnosis Comments BASIC METABOLIC PANEL Routine 09/24/2024 11:42 AM EST Obesity (BMI 30-39.9) TSH W/REFLEX TO FT4 Routine 09/24/2024 1 1:42 AM EST Obesity (BMI 30-39.9) VITAMIN D,25-OH,TOTAL,IA Routine 09/24/2024 11:42 AM EST Vitamin D deficiency LIPID PANEL, STANDARD Routine 09/24/2024 11:42 AM EST Obesity (BMI 30-39.9) THINPREP IMAGING PAP AND HPV MRNA E6/E7 WITH REFLEX TO HPV 16,18/45 Routine 12/17/2021 12:00 AM EDT PAP SMEAR Routine 12/17/2021 12:00 AM EDT ZZZ HISTORICAL HEPATITIS C ANTIBODY RFLX Routine 09/16/2019 8:00 AM EST MARIANNE HISTORICAL HIV AB/AG Routine 09/16/2019 8:00 AM EST from Last 3 Months or Most Recently Relevant to Health Maintenance Results * (ABNORMAL) Vitamin D, 25-Hydroxy, Total, Immunoassay (09/24/2024 11:42 AM EST) Vitamin D 25-OH Total 15.6(L) >30 ng/mL [facility] Comment:Health Based Referen ce Values*< 20 ng/mL [id number] ng/mL Insufficient> 30 ng/mL Sufficient*Jocelynn YOO. N [...] 11:42 AM EST 09/24/2024 11:42 AM EST us [facility] BLO[facility] ORDERABLES Final Resu lt Performing Organization Address City/[facility] Co de Phone Number [facility] [address] [place] [phone] * TSH W/Reflex to FT4 (09/24/2024 11:42 AM EST) TSH reflex Free T4 1.10 0.32 - 4.0 uIU/mL [facility] Blood Venous blood specimen / Unknown 09/24/2024 11:42 AM EST 09/24/2024 11:42 AM EST [facility] LAB BLOOD ORDERABLES Final Resu lt Performing Organization Address City/State/[facility] Co de Phone Number [facility] [address] [place] [address] [phone] * (ABNORMAL) Lipid Panel, Standard (09/24/2024 11:42 AM EST) Triglycerides 62 <150 mg/dL [facility] Comment:Desirable Triglyceri de: less than 150 mg/dLBorderline High Triglyceride 150-199 mg/dLHigh Triglyceride: 200-499 mg/dLVery High Triglyceride: greater than or equal to 5OO mg/dL Cholesterol 163 <200 mg/dL [facility] Comment:Desirable Cholestero l: less than 200 mg/dLBorderline High Cholesterol: 200-239 mg/dLHigh Cholesterol: greater than 239 mg/dL LDL Cholesterol Calculated 105(H) <100 mg/dL [facility] Comment:Desirable LDL: less than 100 mg/dLNear Optimal/Above Optimal LDL: 110- 129 mg/dLBorderline High LDL: 130-159 mg/dLHigh LDL: 160-189 mg/dLVery High LDL: greater than or equal to 190 mg/dL HDL Cholesterol 46 >40 mg/dL [facility] Comment:Desirable HDL: great er than 40 mg/dL Note: This HDL assay may give artificially low results in patients with liver disease. Blood Venous blood specimen / Unknown 09/24/2024 11:42 AM EST 09/24/2024 11:42 AM EST Kavya Guallpa NP LAB BLOOD ORDERABLES Final Resu lt Performing Organization Address [facility] Co de Phone Number [facility] [address] [place] [address] [phone] * (ABNORMAL) Basic Metabolic Panel (09/24/2024 11:42 AM EST) Sodium 141 135 - 145 mmol/L [facility] Potassium 3.8 3.3 - 5.1 mmol/L [facility] Chloride 108 96 - 108 mmol/L [facility] Carbon Dioxide 25 22 - 29 mmol/L [facility] Anion Gap 12 12 - 20 [facility] Urea Nitrogen (BUN) 7(L) 9 - 16 mg/dL [facility] Creatinine, Serum 0.77 0.5 - 1.4 mg/dL [facility] Estimated Glomerular Filt Rate >60 [facility] Comment:Chronic Kidney Disea se: Estimated GFR < 60 mL/min/1.48v4Sjbxbd Kidney Disease: Estimated GFR < 15 mL/min/1.73m2 Glucose 129(H) 60 - 115 mg/dL [facility] Calcium 9.3 8.4 - 10.2 mg/dL [facility] Blood Venous blood specimen / Unknown 09/24/2024 11:42 AM EST 09/24/2024 11:42 AM EST Kavya Guallpa NP LAB BLOOD ORDERABLES Final Resu lt [facility] [address] [place] [phone] [phone] * THINPREP TIS PAP AND HPV mRNA E6/E7 WITH REFLEX TO HPV 16,18/45 (12/17/2021 12:00 AM EDT) Clinical Information: None given [facility] COMMENT SEE COMMENT [facility] Comment: EXPLANATORY NOTE: ? The Pap is a screening test for cervical cancer. It is ?? not a diagnostic test and is subject to false negative ?? and false positive results. It is most reliable when a ?? satisfactory sample, regularly obtained, is submitted ?? with relevant clinical findings and history, and when ?? the Pap result is evaluated along with historic and ?? current clinical information. ?? COMMENT: This Pap test has been evaluated with computer assisted technology. [facility] Cytotechnologis t: SEE COMMENT [facility] Comment: SXA, CT(ASCP) CT screening location: [address] ??[phone] HPV nRNA E6/E7 Not Detected Not Detected [facility] Comment: Methodology: Tank Carpenter-Mediated Amplification This assay detects E6/E7 viral messenger RNA (mRNA) from 14 high-risk HPV types (16,18,31,33,35,39,45,51,52,56,58,59,66,68). ? Cervical sources are required for HPV testing. If a vaginal source from a patient who has had a total hysterectomy with removal of cervix was ?? submitted, please contact the testing laboratory for alternative testing options. ?? For additional information, please refer to [email or web address] (This link if provided for information/ educational purposes only.) Interpretation/ Result: Negative for intraepithelial lesion or malignancy. [facility] LMP: NONE GIVEN [facility] Prev. BX: NONE GIVEN [facility] Prev. PAP: NONE GIVEN [facility] SOURCE: None given [facility] Statement Of Adequacy: SEE COMMENT [facility] Comment: Satisfactory for evaluation. Endocervical/transformation zone component present. Age and/or menstrual status not provided 12/17/2021 [facility] PATHOLOGY ORDERABLES F inal Result Performing Organization Address [facility] Co de Phone Number [facility] [address] * Pap Smear (12/17/2021 12:00 AM EDT) Swab Cayla [employer] [facility] LAB CYTOLOGY ORDERABLES Fi nal Result Performing Organization Address [facility]/ZIP Co de Phone Number [address], [place] [phone] * HEPATITIS C ANTIBODY RFLX (09/16/2019 8:00 AM EST) HEPATITIS C ANTIBODY NONREACTIVE NONREACTIVE [facility] Comment: Antibodies to HCV not detected; does not exclude early acute HCV infection. 09/16/2019 8:00 AM EST Historical Provider MD HISTORICAL/NON ORDERABLE LABS Final Result Performing Organization Address [facility] Co de Phone Number [facility] [address] * HIV AB/AG (09/16/2019 8:00 AM EST) Pathologist [facility] HIV AG/AB NONREACTIVE NR [facility] Comment: HIV-1 p24 Ag and/or HIV-1/HIV-2 Ab not detected. ?? A test result that is nonreactive does not exclude the possibility of exposure to or infection with HIV-1 and/or HIV-2. Nonreactive results in this assay for individuals with prior exposure to HIV-1 and/or HIV-2 may be due to antigen and antibody levels that are below the limit of detection of this assay. ?? The [employer] HIV Ag/Ab Combo assay result and supplemental assay results should be interpreted in conjunction with the patient's clinical presentation, history and other laboratory results. ??If the results are inconsistent with clinical evidence, additional testing is suggested to confirm the result. 09/16/2019 8:00 AM EST us Historical Provider HISTORICAL/NON ORDERABLE LABS Final Result Performing Organization Address City/State/[facility] Co de Phone Number [facility] [address] from Last 3 Months or Most Recently Relevant to Health Maintenance Insurance [facility] Care Teams District Or District Office Director Relationship Specialty Start Date End Date Kavya Guallpa NP [address] [place] [phone] PCP - General Family Medicine 07/04/23
--- OUTSIDE RECORDS SUMMARY | 2024-09-24 14:16 | XMS_ITS | Encounter Summary ---
Author Organization [employer] Address [address] [facility] [address] [place] [address] Care Team Providers Care Mid Level Provider Name Role Phone Cayla Zavala Primary Care Provider [phone] Kavya Guallpa NP Primary Care Provider [phone] Thor Mooney MD Primary Care Prov ider Kavya Guallpa NP Primary Care Provider [phone] Reason for Visit * Reason Onset Date Comments Appointment Request 10/25/2022 Encounter Details Date Type Department Care Team (Late st Contact Info) Description 10/25/2022 Telephone [facility] [address] [place] [address] Cayla Zavala FNP [address] [place] [address] [place] [address] Appointment Request Social History Tobacco Use Types Packs/Day Years Used Date Smoking Tobacco: Never Assessed Comments Unknown Sex and Gender Information Value Date Recorded Sex Assigned at Female 05/23/2022 10:16 AM EDT Legal Sex Female 10:16 AM EDT Gender Identity Female 05/23/2022 10:16 AM EDT Sexual Orientation Straight 12/05/2022 9: 28 AM EDT documented as of this encounter Miscellaneous Notes * Telephone Encounter - Cam Cotton - 10/25/2022 11:45 AM EDT Tc from pt requesting a physical appt. Please contact pt at [phone] documented in this encounter Plan of Treatment Upcoming Encounters Date Type Department Care Team (Late st Contact Info) Description 10/18/2024 11:00 AM EDT Office Visit [facility] [address] [place] [address] Kavya Guallpa NP [address] [place] [address] documented as of this encounter Visit Diagnoses Not on filedocumented in this encounter Care Teams Mid Level Provider Relationship Specialty Start Date End Date Cayla Zavala FNP PCP - General Family Medicine 05/17/21 04/26/23 Kavya Guallpa NP [address] [place] [address] PCP - General Family Medicine 04/27/23 06/25/23 Thor Mooney MD [address] [place] [phone] PCP - General Internal Medicine 06/26/23 07/03/23 Kavya Guallpa NP [address] [place] [phone] PCP - General Family Medicine 07/04/23 documented as of this encounter
--- OUTSIDE RECORDS SUMMARY | 2024-09-24 14:16 | XMS_ITS | Encounter Summary ---
Demographics Address [address] [place] [address] Work Phone Mobile Phone Email Address Preferred Language en Marital Status Single Judaism Affiliation Unknown Race Other Race Ethnic Group or Author Organization [facility] Address [address] [place] [address] Care Team Providers Care Courtroom Clerk Name Role Phone Kavya Guallpa NP Primary Care Provider [phone] Reason for Visit * Reason Onset Date Comments chartprep 09/03/2024 Encounter Details Date Type Department Care Team (Late st Contact Info) Description 09/03/2024 Telephone [facility] [address] [place] [address] Edinson Prado [place] chartprep Social History Tobacco Use Types Packs/Day Years Used Date Smoking Tobacco: Every Day Cigarettes Smokeless Tobacco: Never Alcohol Use Standard Drinks/Week Comments Never 0 (1 standard drink = 0.6 oz pur e alcohol) Depression Answer Date Recorded Patient Health Questionnaire-9 Score 0 01/11/2023 Housing Stability Answer Date Recorded What is your housing situation today? I have brent yuen 05/18/[address] you li ve. Do you have problems with any of the following? None of the above 05/18/2023 Food Insecurity Answer Date Recorded Within the past 12 months, y ou worried that your food would run out before you got money to buy more: Never True 05/18/2023 Within the past 12 months,th e food you bought just didn't last and you didn't have enough money to get more: Never True Transportation Answer Date Recorded In the past 12 months, has l ack of transportation kept you from medical appts, meetings, work or from getting things needed for daily living? No 05/18/2023 Utilities Answer Date Recorded In the past 12 months, has t he electric, gas, oil or water company threatened to shut off services in your home? No 05/18/2023 Depression Answer Date Recorded Patient Health Questionnaire-2 Score 0 01/11/2023 Comments No Sex and Gender Information Value Date Recorded Sex Assigned at Female 05/23/2022 10:16 AM EDT Legal Sex Female 10:16 AM EDT Gender Identity Female 05/23/2022 10:16 AM EDT Sexual Orientation Straight 12/05/2022 9: 28 AM EDT documented as of this encounter Miscellaneous Notes * Telephone Encounter - Edinson Prado [place] - 09/03/2024 3:17 PM EST Chart Prep Labs: done Images: done Vaccines due: yes Referrals: complete Screenings: N/A Overdue care gaps: Sbirt, SDOH, PHQ-9, Oral Health, KARINA-7,Tobacco documented in this encounter Plan of Treatment Upcoming Encounters Date Type Department Care Team (Late st Contact Info) Description 10/18/2024 11:00 AM EDT Office Visit [facility] [address] [place] [address] Kavya Guallpa NP [address] [place] [address] documented as of this encounter Visit Diagnoses Not on filedocumented in this encounter Additional Health Concerns Assessment Noted Time PHQ-9 Depression Total Score: 0 01/12/20 9:33 AM EDT documented as of this encounter Care Teams Courtroom Clerk Relationship Specialty Start Date End Date Kavya Guallpa NP [address] [place] [address] PCP - General Family Medicine 07/04/23 documented as of this encounter
--- OUTSIDE RECORDS SUMMARY | 2024-09-24 14:16 | XMS_ITS | Clinical Summary ---
Author Organization [facility] it Address [address] [place] [address] Care Team Providers Care Aviculturist Name Role Phone Unavailable Primary Care Provider Unavailabl e Surgical History Surgery Date Site/Laterality Comments OTHER SURGICAL HISTORY PROCEDURE: DENIES PREVIOUS SURGERY Medical History Medical History Date Comments Asthma DX:Asthma Eczema DX:Eczema Seizure (CMS/HCC) DX:Seizure (HC C); COMMENT: in third grade, nl EKG 05/31 Depression 05/31 DX:Depression; C OMMENT: sees counselor, on Celexa Historical Medical DX DX:Self in flicted injury Family History Medical History Relation Name Comments Asthma Brother 1 sister Relation Name Status Comments Brother 1 Brother 2 Social History Tobacco Use Types Packs/Day Years Used Date Smoking Tobacco: Passive Smo ke Exposure - Never Smoker Alcohol Use Standard Drinks/Week Comments Not Asked 0 (1 standard drink = 0.6 oz pur e alcohol) Comments Unknown Sex and Gender Information Value Date Recorded Sex Assigned at Not on file Legal Sex Female 1:55 PM EST Gender Identity Not on file Sexual Orientation Not on file Obstetrics History Plan of Treatment Health Maintenance Due Date Last Done Comments Hepatitis B Vaccines (4 of 4 - 4-dose series) 04/22/1998 03/31/1998, 02/25/1998, 03/03/1997 Cervical Cancer Screening: Pap Smear 2011 DTaP,Tdap,and Td Vaccines (7 - Td or Tdap) 11/07/2019 11/06/2009, 04/20/2004, 08/15/1994, Additional history exists COVID-19 Vaccine (2023- season) 2024 Influenza Vaccine (#1) 2024 04/08/2010, 1999 HIB Vaccines Completed 12/12/1992, 03/1993, 10/06/1991, Additional history exists IPV Vaccines Completed 08/15/1994, 11/22, 12/12/1992, Additional history exists MMR Vaccines Completed 10/20/1999, 09/22, 09/29/1992 Pneumococcal Vaccine: Pediatrics (0 to 5 Years) and At-Risk Patients (6 to 64 Years) Aged Out 05/17/2000 No longer eligible based on patient's age to complete this topic Meningococcal ACWY Vaccine Completed 04/17/2008 HPV Vaccines Completed 11/06/2009, 09/21, 04/17/2008 Hepatitis A Vaccines Aged Out No long er eligible based on patient's age to complete this topic Meningococcal B Vacine Aged Out No lo nger eligible based on patient's age to complete this topic RSV Immunization Patients Under 20 months Aged Out No longer eligible based on patient's age to complete this topic Varicella Vaccines Aged Out No longer eligible based on patient's age to complete this topic
== END 2024-09-24 11:21 | disposition home or self-care (01) ==
LOC: HO.LAB 11:20
PROVIDERS: Visit Provider Nurse Practitioner
DX: E66.9 Obesity, unspecified (principal); E55.9 Vitamin D deficiency, unspecified
CPT/HCPCS: 36415; 80048; 80061; 82306; 84443